=== PATIENT | male | born 1975 | race Caucasian/White ===

== ENCOUNTER 2016-12-25 23:09 | Emergency (ER) | payer OTHER ==
--- NOTE | 2016-12-25 23:59 | ED ORDER SUMMARY ---
..... Patient: VAN TAVERA OrderSheet [facility] VisitID: [id number] [place] [address] 41y, M Registration Date/Time: 12/25/2016 ORDER SHEET Weight: 106.5 kg (stated) Allergies: No Known Drug Allergy GENERAL ORDERS: Knee 4V Left Urgent (23:12/25/2016 Candace Frances) (23:35 EInderbitzen R.N.) (Ack 23:35 Akbar ER Drywall Contractor) Shoulder 2V or more Right Urgent (23:12/25/2016 Candace Frances) (23:35 EInderbitzen R.N.) (Ack 23:35 Akbar ER Drywall Contractor) Ice (23:12/25/2016 Candace Frances) (Ack 23:35 EInderbitzen R.N.) (23:35 EInderbitzen R.N.) Irrigate Wounds (23:12/25/2016 Candace Frances) (23:35 EInderbitzen R.N.) Dress Wounds (23:12/25/2016 Candace Frances) (23:35 EInderbitzen R.N.) MEDICATION ORDERS: Ysnzpwp-Oipntv-Zactr Pertussis IM 0.5 mL (NOW, per protocol) (23:12/25/2016 Candace Frances) (23:34 EInderbitzen R.N.) Augmentin PO 875 mg (NOW) (23:12/25/2016 Candace Frances) (23:34 EInderbitzen R.N.) IV FLUIDS: ORDER SHEET NOTES: [Electronically signed by Siobhan López R.N. (00:12/26/2016)] [Electronically signed by Philip Handy Dr. (05:13 12/28/2016)] [Electronically locked/signed by Siobhan López R.N. (00:12/26/2016)]
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
--- NOTE | 2016-12-25 23:59 | ED ORDER SUMMARY ---
..... Patient: VAN TAVERA OrderSheet [facility] VisitID: [id number] [place] [address] 41y, M Registration Date/Time: 12/25/2016 ORDER SHEET Weight: 106.5 kg (stated) Allergies: No Known Drug Allergy GENERAL ORDERS: Knee 4V Left Urgent (23:12/25/2016 Candace Frances) (23:35 EInderbitzen R.N.) (Ack 23:35 Akbar ER Cruller Maker Machine) Shoulder 2V or more Right Urgent (23:12/25/2016 Candace Frances) (23:35 EInderbitzen R.N.) (Ack 23:35 Akbar ER Cruller Maker Machine) Ice (23:12/25/2016 Candace Frances) (Ack 23:35 EInderbitzen R.N.) (23:35 EInderbitzen R.N.) Irrigate Wounds (23:12/25/2016 Candace Frances) (23:35 EInderbitzen R.N.) Dress Wounds (23:12/25/2016 Candace Frances) (23:35 EInderbitzen R.N.) MEDICATION ORDERS: Bzvqoze-Zgpgyz-Dijuo Pertussis IM 0.5 mL (NOW, per protocol) (23:12/25/2016 Candace Frances) (23:34 EInderbitzen R.N.) Augmentin PO 875 mg (NOW) (23:12/25/2016 Candace Frances) (23:34 EInderbitzen R.N.) IV FLUIDS: ORDER SHEET NOTES: [Electronically signed by Siobhan López R.N. (00:12/26/2016)] [Electronically signed by Philip Handy Dr. (05:13 12/28/2016)] [Electronically locked/signed by Siobhan López R.N. (00:12/26/2016)]
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
--- NOTE | 2016-12-26 00:03 | DIAGNOSTIC IMAGING REPORT ---
PROCEDURE: XR KNEE 4 VIEWS - LEFT INDICATION: TRAUMA/INJURY TECHNIQUE: Four views. COMPARISON: None. FINDINGS: Osseous structures and joint spaces are normal. No effusion. IMPRESSION: 1. Normal left knee.
--- NOTE | 2016-12-26 00:04 | DIAGNOSTIC IMAGING REPORT ---
PROCEDURE: XR SHOULDER 2 OR MORE VW-RIGHT INDICATION: TRAUMA/INJURY TECHNIQUE: Three views. COMPARISON: None. FINDINGS: Osseous structures, joint spaces and soft tissues are normal. IMPRESSION: 1. Normal right shoulder.
--- NOTE | 2016-12-28 05:13 | ED MAR SUMMARY ---
..... Medication Administration Record [facility] [address] [place] [address] Patient: VAN TAVERA Visit ID: [id number] 41y, M Weight: 106.5 kg Height/Length: 67 in BMI: 36.8 ALLERGIES: No Known Drug Allergy Given 23:30 12/25/2016 Siobhan López RMinoNMino Medication Administered: AUGMENTIN [PO] (AMOXICILLIN-POT CLAVULANATE), Dose: 875 mg Tablets PO. Medication Ordered: Augmentin PO 875 mg (NOW). Given 23:32 12/25/2016 Siobhan López, R.NMino Medication Administered: WBHLWTH-TELZLC-HIIWB PERTUSSIS [IM], Dose: 0.5 mL IM. Medication Ordered: Opiehhp-Oikmij-Qgrdn Pertussis IM 0.5 mL (NOW, per protocol).
--- NOTE | 2016-12-28 05:13 | ED DISCHARGE INSTRUCTIONS ---
Patient: VAN TAVERA General Instructions [facility] VisitID: [id number] [place] [address] 41y, M Registration Date/Time: 12/25/2016 12/25/2016 23:22 BP: 100/53. HR: 102. RR: 20. O2 saturation: 96%. Temp: 98.8 F. Blood pressure normal. Oxygen saturation normal. Multiple superficial abrasions to the right thigh and left knee. Superficial dog bite. Multiple contusions to the right shoulder. INSTRUCTIONS Warnings: INFECTION: Watch for signs of infection (increasing heat and redness, pus-like drainage, swelling, or increased pain). Return or see your doctor if these signs occur. TETANUS: You were given a tetanus shot during your visit. Make a note for future reference. GENERAL WARNINGS: Return or contact your physician immediately if your condition worsens or changes unexpectedly, if not improving as expected, or if other problems arise. SPECIFICALLY, return if you develop weakness, numbness, tingling, pain or incontinence. Your Current Medications: CONTINUE TAKING THE FOLLOWING MEDICATIONS: None*. Prescription Medications: Augmentin 875 mg: take 1 tablet orally every 12 hours for 7 days. No refill. Substitution is permissible. (Disp 14 tabs) OTC Medications: Acetaminophen (available over the counter): take according to label instructions. Motrin (available over the counter): take according to label instructions. Follow-up: Return to the emergency department as needed. Follow up with your doctor in three days. Reason for referral: recheck today's concerns. Summary of care provided to patient via paper. Screening today revealed the patient's blood pressure to be in the normal range. The patient should follow up with a primary care provider for blood pressure management. Understanding of the discharge instructions verbalized by patient. ADDITIONAL INFORMATION Abrasions Abrasions are skin scrapes. Their treatment depends on how large and deep the abrasion is. Home Care: If you were given a bandage, change it once a day. If your bandage sticks to the wound, soak it in warm water until it loosens. Wash the area with soap and water to remove all the cream/ointment. You may do this in a sink, under a tub faucet or shower. Rinse off the soap and pat dry with a clean towel. Reapply cream/ointment according to your doctor's instructions. This will prevent infection and help prevent the bandage from sticking. Cover the wound with a fresh non-stick bandage (Telfa). Repeat steps 1 to 4 daily, or as directed by your doctor. If the bandage becomes wet or dirty, change it as soon as possible. You may use acetaminophen (Tylenol) or ibuprofen (Motrin, Advil) to control pain, unless another pain medicine was prescribed. [ NOTE : If you have chronic liver or kidney disease or ever had a stomach ulcer or GI bleeding, talk with your doctor before using these medicines.] Do not use ibuprofen in children under six months of age. Follow Up with your physician or this facility as directed by our staff. Most skin wounds heal within ten days. However, an infection may occur despite proper treatment. Therefore, look for the early signs of infection listed below. Get Prompt Medical Attention if any of the following occur: Increasing pain in the wound Increasing redness or swelling Pus coming from the wound Fever of 100.4F (38C) or higher, or as directed by your healthcare provider Shoulder Contusion You have a contusion of your shoulder. This causes local pain, swelling, and sometimes bruising. There are no broken bones. This injury takes a few days, or up to six weeks to heal, depending on the severity. Moderate to severe shoulder contusions are treated with a sling or shoulder immobilizer. Minor contusions can be treated without any special support. Home Care: If a sling was provided, leave it in place for the time advised by your doctor. If you are unsure how long to wear it, ask for advice. If the sling becomes loose, adjust it so that your forearm is level with the ground and the shoulder feels well supported. Apply an ice pack (ice cubes in a plastic bag, wrapped in a towel) over the injured area for 20 minutes every 1 to 2 hours the first day for pain relief. Continue this 3 to 4 times a day until the pain and swelling go away. You may use acetaminophen (Tylenol) or ibuprofen (Motrin, Advil) to control pain, unless another pain medicine was prescribed. (NOTE: If you have chronic liver or kidney disease or ever had a stomach ulcer or GI bleeding, talk with your doctor before using these medicines.) Shoulder joints become stiff if left in a sling for too long. Dyglj-wm-fyslzp exercises should usually be started within the first ten days after injury. Consult your doctor on what type of exercises to do and how soon to start. Unless you were told otherwise, you may remove the sling to shower or bathe. Follow Up with your doctor, or as advised by our staff, if you are not starting to improve within the next 5 days. Get Prompt Medical Attention if any of the following occur: Pain or swelling increases Large amount of bruising of the shoulder or upper arm Hand or fingers become cold, blue, numb or tingly Dog Bite If a dog has bitten you and the wound is deep enough to break the skin, an infection may occur. Therefore, you should watch for the warning signs listed below. The doctor may not close the wound completely. This is to allow fluid to drain in the event of an infection. Home Care Watch the wound for signs of infection listed below. In certain types of bites, antibiotics may be prescribed. Begin taking these as soon as possible, as directed until they are all gone. Rabies Prevention If you live in an area where rabies occurs in wild animals, the rabies virus can be passed to cats and dogs. An infected animal can pass the rabies virus to you during a bite. If ahealthy-looking pet dog has bitten you, it should be kept in a secure area for the next 10 days to watch for signs of illness. If the pet van owner operator wont cooperate with you, contact the [facility] animal control department (or local law enforcement). If the animal becomes ill or dies [id number] days, contact your animal control department at once. The animal must be tested for rabies. If the animal stays healthy for the next 10 days, then there is no danger of rabies in the dog or you. Pets fully vaccinated against rabies (2 shots) are at very low risk for the infection. However, because human rabies is almost always fatal, any biting dog should be kept in confinement for 10 days as an extra precaution. If a stray dog bit you, contact the animal control department. They can provide information on capture, quarantine, and animal rabies testing. If you are unable to locate the animal that bit you in the next 2days, and if rabies exists in your region, you must be evaluated for the rabies vaccine series. Contact your doctor or return here promptly. All animal bites should be reported to the [facility] animal control department. If you were not given a form to fill out, you can report it yourself by calling. Follow Up with your doctor as advised. Most skin wounds heal within 10 days. However, an infection may occur even with proper treatment. Check your woundevery 6 hoursfor 2 days, then at least once a day for the next two days for the signs of infection listed below. Get Prompt Medical Attention if any of the following occur: Signs of infection: Spreading redness Increased pain or swelling Fever of 100.4F (38C) or higher, or as directed by your healthcare provider Colored fluid or pus draining from the wound Headache, confusion, strange behavior, or a seizure (signs of a rabies infection) Amoxicillin Trihydrate, Clavulanate Potassium Oral tablet What is this medicine? AMOXICILLIN; CLAVULANIC ACID (a mox i GERMAN in; RONALD kohli ic id) is a penicillin antibiotic. It is used to treat certain kinds of bacterial infections. It will not work for colds, flu, or other viral infections. How should I use this medicine? Take this medicine by mouth with a full glass of water. Follow the directions on the prescription label. Take at the start of a meal. Do not crush or chew. If the tablet has a score line, you may cut it in half at the score line for easier swallowing. Take your medicine at regular intervals. Do not take your medicine more often than directed. Take all of your medicine as directed even if you think you are better. Do not skip doses or stop your medicine early. Talk to your assurance specialist regarding the use of this medicine in children. Special care may be needed. What side effects may I notice from receiving this medicine? Side effects that you should report to your doctor or health urgent care physician assistant as soon as possible: allergic reactions like skin rash, itching or hives, swelling of the face, lips, or tongue breathing problems dark urine fever or chills, sore throat redness, blistering, peeling or loosening of the skin, including inside the mouth seizures trouble passing urine or change in the amount of urine unusual bleeding, bruising unusually weak or tired white patches or sores in the mouth or throat Side effects that usually do not require medical attention (report to your doctor or health urgent care physician assistant if they continue or are bothersome): diarrhea dizziness headache nausea, vomiting stomach upset vaginal or anal irritation What may interact with this medicine? allopurinol anticoagulants control pills methotrexate probenecid What if I miss a dose? If you miss a dose, take it as soon as you can. If it is almost time for your next dose, take only that dose. Do not take double or extra doses. Where should I keep my medicine? Keep out of the reach of children. Store at room temperature below 25 degrees C (77 degrees F). Keep container tightly closed. Throw away any unused medicine after the expiration date. What should I tell my health care provider before I take this medicine? They need to know if you have any of these conditions: bowel disease, like colitis kidney disease liver disease mononucleosis an unusual or allergic reaction to amoxicillin, penicillin, cephalosporin, other antibiotics, clavulanic acid, other medicines, foods, dyes, or preservatives or trying to get breast-feeding What should I watch for while using this medicine? Tell your doctor or health urgent care physician assistant if your symptoms do not improve. Do not treat diarrhea with over the counter products. Contact your doctor if you have diarrhea that lasts more than 2 days or if it is severe and watery. If you have diabetes, you may get a false-positive result for sugar in your urine. Check with your doctor or health urgent care physician assistant. control pills may not work properly while you are taking this medicine. Talk to your doctor about using an extra method of control. You have been given the following additional information: Abrasion Shoulder Contusion Dog Bite Amoxicillin Trihydrate, Clavulanate Potassium Oral tablet (Electronically signed by Philip Handy Dr. 12/28/2016 5:13)
--- NOTE | 2016-12-28 05:13 | ED MAR SUMMARY ---
..... Medication Administration Record [facility] [address] [place] [address] Patient: VAN TAVERA Visit ID: [id number] 41y, M Weight: 106.5 kg Height/Length: 67 in BMI: 36.8 ALLERGIES: No Known Drug Allergy Given 23:30 12/25/2016 Siobhan López RMinoNMino Medication Administered: AUGMENTIN [PO] (AMOXICILLIN-POT CLAVULANATE), Dose: 875 mg Tablets PO. Medication Ordered: Augmentin PO 875 mg (NOW). Given 23:32 12/25/2016 Siobhan López, R.NMino Medication Administered: SDNLGIF-EQONTV-MRPXB PERTUSSIS [IM], Dose: 0.5 mL IM. Medication Ordered: Hwhjovk-Xffoot-Zbanf Pertussis IM 0.5 mL (NOW, per protocol).
--- NOTE | 2016-12-28 05:13 | ED DISCHARGE INSTRUCTIONS ---
Patient: VAN TAVERA General Instructions [facility] VisitID: [id number] [place] [address] 41y, M Registration Date/Time: 12/25/2016 12/25/2016 23:22 BP: 100/53. HR: 102. RR: 20. O2 saturation: 96%. Temp: 98.8 F. Blood pressure normal. Oxygen saturation normal. Multiple superficial abrasions to the right thigh and left knee. Superficial dog bite. Multiple contusions to the right shoulder. INSTRUCTIONS Warnings: INFECTION: Watch for signs of infection (increasing heat and redness, pus-like drainage, swelling, or increased pain). Return or see your doctor if these signs occur. TETANUS: You were given a tetanus shot during your visit. Make a note for future reference. GENERAL WARNINGS: Return or contact your physician immediately if your condition worsens or changes unexpectedly, if not improving as expected, or if other problems arise. SPECIFICALLY, return if you develop weakness, numbness, tingling, pain or incontinence. Your Current Medications: CONTINUE TAKING THE FOLLOWING MEDICATIONS: None*. Prescription Medications: Augmentin 875 mg: take 1 tablet orally every 12 hours for 7 days. No refill. Substitution is permissible. (Disp 14 tabs) OTC Medications: Acetaminophen (available over the counter): take according to label instructions. Motrin (available over the counter): take according to label instructions. Follow-up: Return to the emergency department as needed. Follow up with your doctor in three days. Reason for referral: recheck today's concerns. Summary of care provided to patient via paper. Screening today revealed the patient's blood pressure to be in the normal range. The patient should follow up with a primary care provider for blood pressure management. Understanding of the discharge instructions verbalized by patient. ADDITIONAL INFORMATION Abrasions Abrasions are skin scrapes. Their treatment depends on how large and deep the abrasion is. Home Care: If you were given a bandage, change it once a day. If your bandage sticks to the wound, soak it in warm water until it loosens. Wash the area with soap and water to remove all the cream/ointment. You may do this in a sink, under a tub faucet or shower. Rinse off the soap and pat dry with a clean towel. Reapply cream/ointment according to your doctor's instructions. This will prevent infection and help prevent the bandage from sticking. Cover the wound with a fresh non-stick bandage (Telfa). Repeat steps 1 to 4 daily, or as directed by your doctor. If the bandage becomes wet or dirty, change it as soon as possible. You may use acetaminophen (Tylenol) or ibuprofen (Motrin, Advil) to control pain, unless another pain medicine was prescribed. [ NOTE : If you have chronic liver or kidney disease or ever had a stomach ulcer or GI bleeding, talk with your doctor before using these medicines.] Do not use ibuprofen in children under six months of age. Follow Up with your physician or this facility as directed by our staff. Most skin wounds heal within ten days. However, an infection may occur despite proper treatment. Therefore, look for the early signs of infection listed below. Get Prompt Medical Attention if any of the following occur: Increasing pain in the wound Increasing redness or swelling Pus coming from the wound Fever of 100.4F (38C) or higher, or as directed by your healthcare provider Shoulder Contusion You have a contusion of your shoulder. This causes local pain, swelling, and sometimes bruising. There are no broken bones. This injury takes a few days, or up to six weeks to heal, depending on the severity. Moderate to severe shoulder contusions are treated with a sling or shoulder immobilizer. Minor contusions can be treated without any special support. Home Care: If a sling was provided, leave it in place for the time advised by your doctor. If you are unsure how long to wear it, ask for advice. If the sling becomes loose, adjust it so that your forearm is level with the ground and the shoulder feels well supported. Apply an ice pack (ice cubes in a plastic bag, wrapped in a towel) over the injured area for 20 minutes every 1 to 2 hours the first day for pain relief. Continue this 3 to 4 times a day until the pain and swelling go away. You may use acetaminophen (Tylenol) or ibuprofen (Motrin, Advil) to control pain, unless another pain medicine was prescribed. (NOTE: If you have chronic liver or kidney disease or ever had a stomach ulcer or GI bleeding, talk with your doctor before using these medicines.) Shoulder joints become stiff if left in a sling for too long. Ckwld-oa-njyznf exercises should usually be started within the first ten days after injury. Consult your doctor on what type of exercises to do and how soon to start. Unless you were told otherwise, you may remove the sling to shower or bathe. Follow Up with your doctor, or as advised by our staff, if you are not starting to improve within the next 5 days. Get Prompt Medical Attention if any of the following occur: Pain or swelling increases Large amount of bruising of the shoulder or upper arm Hand or fingers become cold, blue, numb or tingly Dog Bite If a dog has bitten you and the wound is deep enough to break the skin, an infection may occur. Therefore, you should watch for the warning signs listed below. The doctor may not close the wound completely. This is to allow fluid to drain in the event of an infection. Home Care Watch the wound for signs of infection listed below. In certain types of bites, antibiotics may be prescribed. Begin taking these as soon as possible, as directed until they are all gone. Rabies Prevention If you live in an area where rabies occurs in wild animals, the rabies virus can be passed to cats and dogs. An infected animal can pass the rabies virus to you during a bite. If ahealthy-looking pet dog has bitten you, it should be kept in a secure area for the next 10 days to watch for signs of illness. If the pet dentist/owner wont cooperate with you, contact the [facility] animal control department (or local law enforcement). If the animal becomes ill or dies [id number] days, contact your animal control department at once. The animal must be tested for rabies. If the animal stays healthy for the next 10 days, then there is no danger of rabies in the dog or you. Pets fully vaccinated against rabies (2 shots) are at very low risk for the infection. However, because human rabies is almost always fatal, any biting dog should be kept in confinement for 10 days as an extra precaution. If a stray dog bit you, contact the animal control department. They can provide information on capture, quarantine, and animal rabies testing. If you are unable to locate the animal that bit you in the next 2days, and if rabies exists in your region, you must be evaluated for the rabies vaccine series. Contact your doctor or return here promptly. All animal bites should be reported to the [facility] animal control department. If you were not given a form to fill out, you can report it yourself by calling. Follow Up with your doctor as advised. Most skin wounds heal within 10 days. However, an infection may occur even with proper treatment. Check your woundevery 6 hoursfor 2 days, then at least once a day for the next two days for the signs of infection listed below. Get Prompt Medical Attention if any of the following occur: Signs of infection: Spreading redness Increased pain or swelling Fever of 100.4F (38C) or higher, or as directed by your healthcare provider Colored fluid or pus draining from the wound Headache, confusion, strange behavior, or a seizure (signs of a rabies infection) Amoxicillin Trihydrate, Clavulanate Potassium Oral tablet What is this medicine? AMOXICILLIN; CLAVULANIC ACID (a mox i GERMAN in; RONALD kohli ic id) is a penicillin antibiotic. It is used to treat certain kinds of bacterial infections. It will not work for colds, flu, or other viral infections. How should I use this medicine? Take this medicine by mouth with a full glass of water. Follow the directions on the prescription label. Take at the start of a meal. Do not crush or chew. If the tablet has a score line, you may cut it in half at the score line for easier swallowing. Take your medicine at regular intervals. Do not take your medicine more often than directed. Take all of your medicine as directed even if you think you are better. Do not skip doses or stop your medicine early. Talk to your software engineer intern regarding the use of this medicine in children. Special care may be needed. What side effects may I notice from receiving this medicine? Side effects that you should report to your doctor or health ocular care aide as soon as possible: allergic reactions like skin rash, itching or hives, swelling of the face, lips, or tongue breathing problems dark urine fever or chills, sore throat redness, blistering, peeling or loosening of the skin, including inside the mouth seizures trouble passing urine or change in the amount of urine unusual bleeding, bruising unusually weak or tired white patches or sores in the mouth or throat Side effects that usually do not require medical attention (report to your doctor or health ocular care aide if they continue or are bothersome): diarrhea dizziness headache nausea, vomiting stomach upset vaginal or anal irritation What may interact with this medicine? allopurinol anticoagulants control pills methotrexate probenecid What if I miss a dose? If you miss a dose, take it as soon as you can. If it is almost time for your next dose, take only that dose. Do not take double or extra doses. Where should I keep my medicine? Keep out of the reach of children. Store at room temperature below 25 degrees C (77 degrees F). Keep container tightly closed. Throw away any unused medicine after the expiration date. What should I tell my health care provider before I take this medicine? They need to know if you have any of these conditions: bowel disease, like colitis kidney disease liver disease mononucleosis an unusual or allergic reaction to amoxicillin, penicillin, cephalosporin, other antibiotics, clavulanic acid, other medicines, foods, dyes, or preservatives or trying to get breast-feeding What should I watch for while using this medicine? Tell your doctor or health ocular care aide if your symptoms do not improve. Do not treat diarrhea with over the counter products. Contact your doctor if you have diarrhea that lasts more than 2 days or if it is severe and watery. If you have diabetes, you may get a false-positive result for sugar in your urine. Check with your doctor or health ocular care aide. control pills may not work properly while you are taking this medicine. Talk to your doctor about using an extra method of control. You have been given the following additional information: Abrasion Shoulder Contusion Dog Bite Amoxicillin Trihydrate, Clavulanate Potassium Oral tablet (Electronically signed by Philip Handy Dr. 12/28/2016 5:13)
--- NOTE | 2016-12-28 05:13 | ED MED RECONCILIATION SUMMARY ---
Patient: VAN TAVERA Medication Reconciliation Report [facility] VisitID: [id number] [place] [address] 41y, M Registration Date/Time: 12/25/2016 Weight: 106.5 kg Height/Length: 67 in. BMI: 36.8 ALLERGIES: No Known Drug Allergy The patient's Home Medications are listed below: NONE. The source(s) of the original Home Medication information: patient The following Medications were given to the patient in the Emergency Department: LZZVLZQ-SDPPSY-OXZFZ PERTUSSIS [IM] IM 0.5 mL, administered: 12/25/2016 11:32:00 PM Augmentin [PO] PO 875 mg, administered: 12/25/2016 11:30:00 PM The following Medications were prescribed to the patient: Acetaminophen (available over the counter): take according to label instructions. -- Philip Handy Dr. Motrin (available over the counter): take according to label instructions. -- Philip Handy Dr. Augmentin 875 mg: take 1 tablet orally every 12 hours for 7 days. No refill. Substitution is permissible.(Disp 14 tabs) -- Philip Handy Dr.
--- NOTE | 2016-12-28 05:13 | ED MED RECONCILIATION SUMMARY ---
Patient: VAN TAVERA Medication Reconciliation Report [facility] VisitID: [id number] [place] [address] 41y, M Registration Date/Time: 12/25/2016 Weight: 106.5 kg Height/Length: 67 in. BMI: 36.8 ALLERGIES: No Known Drug Allergy The patient's Home Medications are listed below: NONE. The source(s) of the original Home Medication information: patient The following Medications were given to the patient in the Emergency Department: ZDTAPKR-XGTKRH-XNSEZ PERTUSSIS [IM] IM 0.5 mL, administered: 12/25/2016 11:32:00 PM Augmentin [PO] PO 875 mg, administered: 12/25/2016 11:30:00 PM The following Medications were prescribed to the patient: Acetaminophen (available over the counter): take according to label instructions. -- Philip Handy Dr. Motrin (available over the counter): take according to label instructions. -- Philip Handy Dr. Augmentin 875 mg: take 1 tablet orally every 12 hours for 7 days. No refill. Substitution is permissible.(Disp 14 tabs) -- Philip Handy Dr.
== END 2016-12-26 00:27 | disposition home or self-care (01) ==
LOC: ED SRH 23:09
DX: S40.011A Contusion of right shoulder, initial encounter (principal); S70.311A Abrasion, right thigh, initial encounter; S80.212A Abrasion, left knee, initial encounter; W54.0XXA Bitten by dog, initial encounter; Y93.89 Activity, other specified; Y92.9 Unspecified place or not applicable; Y99.8 Other external cause status; Z23 Encounter for immunization

== ENCOUNTER 2017-03-04 02:30 | Emergency (ER) | payer OTHER ==
--- NOTE | 2017-03-04 03:59 | ED ORDER SUMMARY ---
..... Patient: VAN TAVERA OrderSheet [facility] VisitID: [id number] [address] [place] [address] 41y, M Registration Date/Time: 03/04/2017 ORDER SHEET Weight: 99.7 kg (stated) Allergies: No Known Drug Allergy GENERAL ORDERS: - (soak feet in warm soapy water) (02:55 03/04/2017 Candace Frances) (Ack 2:56 RCollier R.N.) (3:05 RCollier R.N.) MEDICATION ORDERS: Apezxkx-Zuulol-Mcsdz Pertussis IM 0.5 mL (NOW, per protocol) (02:55 03/04/2017 Candace Frances) (Ack 2:56 RCollier R.N.) (3:04 RCollier R.N.) Motrin PO 600 mg (NOW) (02:55 03/04/2017 Candace Frances) (Ack 2:56 RCollier R.N.) (3:05 RCollier R.N.) IV FLUIDS: ORDER SHEET NOTES: [Electronically signed by Blanca Solano R.N. (04:10 03/04/2017)] [Electronically signed by Philip Handy Dr. (06:12 03/07/2017)] [Electronically locked/signed by Blanca Solano R.N. (04:10 03/04/2017)]
--- NOTE | 2017-03-04 03:59 | ED NURSING NOTES ---
Clinical Report - Nurses [address] [place] [address] 03/04/2017 2:33 Patient: VAN TAVERA TRIAGE Triage time 02:41. Acuity: LEVEL 4. Chief Complaint: RIGHT LOWER EXTREMITY PAIN. LEFT LOWER EXTREMITY PAIN. Alert. No acute distress. --02:45 Blanca Solano R.N. 02:41 03/04/17. BP: 135/79 taken on the left arm, via an automated monitor, while lying. HR: 84. RR: 16 (regular and unlabored). O2 saturation: 94% on room air. Temp: 97.8 F (oral). Jerome-Dai pain scale: 4/10. --02:45 Blanca Solano R.N. Weight: 99.7 kg stated. Height/Length: 67 inches Per Patient. BMI: 34.5. --02:42 Blanca Solano R.N. Medications Ibuprofen Oral. --02:42 Blanca Solano R.N. Benadryl Oral 50 mg, 2x a day. --02:42 Blanca Solano R.N. Allergies No Known Drug Allergy. --02:42 Blanca Solano R.N. History Historian: patient. Primary physician (None). This occurred today. He has had trouble walking (due to pain). 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 PAST MEDICAL HX: Tetanus status: unknown. Immunizations: status is unknown. SOCIAL HX: Never smoker. Occasional alcohol use. History of drug use: marijuana. --02:45 Blanca Solano R.N. ( pt is homeless and has been walking great distances lately). --02:47 Blanca Solano R.N. PROBLEMS: Psychosis. Anxiety Reaction. Mental Illness. Polyps. --02:43 Blanca Solano R.N. ADDITIONAL SURGERIES: Dental Surgery. Oral surgery . --02:43 Blanca Solano R.N. Interventions ID band on patient. To treatment room. --02:45 Blanca Solano R.N. PHYSICAL ASSESSMENT blisters noted bilaterally on plantar surface and between toes. Ambulatory to room. Patient gowned. GENERAL / NEURO / PSYCH: Oriented X 4. Appears anxious. SKIN: Skin is warm. --02:47 Blanca Solano R.N. NURSING PROGRESS NOTES Two patient identifiers checked. Call light placed in reach. Side rails up x 1. Bed placed in lowest position. Brakes of bed on. --02:47 Blanca Solano R.N. Patient ready for evaluation- chart flagged. --02:47 Blanca Solano R.N. 03:00 03/04/2017 XPPOFUQ-CGKPVQ-RVTOE PERTUSSIS IM 0.5 mL given. (Lot#: [id number], expiration date: 01/16/2019, Pull Through Hooker: sanofi pasteur). Given in the left deltoid. Allergies verified and confirmed 5 rights. Vaccine information statement provided to the patient. --03:04 Blanca Solano R.N. 03:01 03/04/2017 Motrin PO Tablets 600 mg given. Allergies verified and confirmed 5 rights. --03:05 Blanca Solano R.N. 03:05. ( pts feet placed in tub with warm water and Hibiclens, wash cloths and dry towels given to pt.). --03:07 Blanca Solano R.N. DISPOSITION / DISCHARGE Condition at departure: improved and stable. No learning barriers present. Discharge instructions provided and reviewed with the patient. Patient verbalized understanding. Written instructions provided in Persian. The patient was discharged ([facility] in [place] He left the Emergency Department ambulatory and via bus and with fare provided. ( pt will sleep in ED until the buses start running in the morning.). --04:10 Blanca Solano R.N. 04:05 03/04/17. BP: 127/73. HR: 73. RR: 17. O2 saturation: 90% on room air. Temp: deferred. Pain level now: 0/10. --04:10 Blanca Solano R.N. Locked/Released at 03/04/2017 4:10 by Blanca Solano R.N.
--- NOTE | 2017-03-04 03:59 | ED ORDER SUMMARY ---
..... Patient: VAN TAVERA OrderSheet [facility] VisitID: [id number] [address] [place] [address] 41y, M Registration Date/Time: 03/04/2017 ORDER SHEET Weight: 99.7 kg (stated) Allergies: No Known Drug Allergy GENERAL ORDERS: - (soak feet in warm soapy water) (02:55 03/04/2017 Candace Frances) (Ack 2:56 RCollier R.N.) (3:05 RCollier R.N.) MEDICATION ORDERS: Uouzxmn-Dhlwlq-Turzj Pertussis IM 0.5 mL (NOW, per protocol) (02:55 03/04/2017 Candace Frances) (Ack 2:56 RCollier R.N.) (3:04 RCollier R.N.) Motrin PO 600 mg (NOW) (02:55 03/04/2017 Candace Frances) (Ack 2:56 RCollier R.N.) (3:05 RCollier R.N.) IV FLUIDS: ORDER SHEET NOTES: [Electronically signed by Blanca Solano R.N. (04:10 03/04/2017)] [Electronically signed by Philip Handy Dr. (06:12 03/07/2017)] [Electronically locked/signed by Blanca Solano R.N. (04:10 03/04/2017)]
--- NOTE | 2017-03-04 03:59 | ED NURSING NOTES ---
Clinical Report - Nurses [address] [place] [address] 03/04/2017 2:33 Patient: VAN TAVERA TRIAGE Triage time 02:41. Acuity: LEVEL 4. Chief Complaint: RIGHT LOWER EXTREMITY PAIN. LEFT LOWER EXTREMITY PAIN. Alert. No acute distress. --02:45 Blanca Solano R.N. 02:41 03/04/17. BP: 135/79 taken on the left arm, via an automated monitor, while lying. HR: 84. RR: 16 (regular and unlabored). O2 saturation: 94% on room air. Temp: 97.8 F (oral). Jerome-Dai pain scale: 4/10. --02:45 Blanca Solano R.N. Weight: 99.7 kg stated. Height/Length: 67 inches Per Patient. BMI: 34.5. --02:42 Blanca Solano R.N. Medications Ibuprofen Oral. --02:42 Blanca Solano R.N. Benadryl Oral 50 mg, 2x a day. --02:42 Blanca Solano R.N. Allergies No Known Drug Allergy. --02:42 Blanca Solano R.N. History Historian: patient. Primary physician (None). This occurred today. He has had trouble walking (due to pain). 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 PAST MEDICAL HX: Tetanus status: unknown. Immunizations: status is unknown. SOCIAL HX: Never smoker. Occasional alcohol use. History of drug use: marijuana. --02:45 Blanca Solano R.N. ( pt is homeless and has been walking great distances lately). --02:47 Blanca Solano R.N. PROBLEMS: Psychosis. Anxiety Reaction. Mental Illness. Polyps. --02:43 Blanca Solano R.N. ADDITIONAL SURGERIES: Dental Surgery. Oral surgery . --02:43 Blanca Solano R.N. Interventions ID band on patient. To treatment room. --02:45 Blanca Solano R.N. PHYSICAL ASSESSMENT blisters noted bilaterally on plantar surface and between toes. Ambulatory to room. Patient gowned. GENERAL / NEURO / PSYCH: Oriented X 4. Appears anxious. SKIN: Skin is warm. --02:47 Blanca Solano R.N. NURSING PROGRESS NOTES Two patient identifiers checked. Call light placed in reach. Side rails up x 1. Bed placed in lowest position. Brakes of bed on. --02:47 Blanca Solano R.N. Patient ready for evaluation- chart flagged. --02:47 Blanca Solano R.N. 03:00 03/04/2017 UERTZIF-HANALW-FTEWM PERTUSSIS IM 0.5 mL given. (Lot#: [id number], expiration date: 01/16/2019, Seed Potato Arranger: sanofi pasteur). Given in the left deltoid. Allergies verified and confirmed 5 rights. Vaccine information statement provided to the patient. --03:04 Blanca Solano R.N. 03:01 03/04/2017 Motrin PO Tablets 600 mg given. Allergies verified and confirmed 5 rights. --03:05 Blanca Solano R.N. 03:05. ( pts feet placed in tub with warm water and Hibiclens, wash cloths and dry towels given to pt.). --03:07 Blanca Solano R.N. DISPOSITION / DISCHARGE Condition at departure: improved and stable. No learning barriers present. Discharge instructions provided and reviewed with the patient. Patient verbalized understanding. Written instructions provided in Kinyarwanda. The patient was discharged (homeless custodial in [place]). He left the Emergency Department ambulatory and via bus and with fare provided. ( pt will sleep in ED until the buses start running in the morning.). --04:10 Blanca Solano R.N. 04:05 03/04/17. BP: 127/73. HR: 73. RR: 17. O2 saturation: 90% on room air. Temp: deferred. Pain level now: 0/10. --04:10 Blanca Solano R.N. Locked/Released at 03/04/2017 4:10 by Blanca Solano R.N.
--- NOTE | 2017-03-04 03:59 | ED CLINICAL REPORT ---
Clinical Report - Physicians/Mid Levels [facility] [address] [place] [place] [address] 03/04/2017 2:33 Patient: VAN TAVERA Time Seen: 0241. Arrived- By private vehicle. Historian- patient. HISTORY OF PRESENT ILLNESS Chief Complaint: (blisters to the bottom of the feet). This started today and is still present. It was gradual in onset and has been constant but is not gone now. It is described as painful. It has been located on the right foot and left foot. A cause has been identified (walking long distances). (states he is homeless. would like a shower. understands that there is not much we can do for the blisters. states he can not get into a skilled nursing at this time because it is too late. reports not being able to stay at his storage place.). Similar symptoms previously: None. Recent medical care: Not recently seen/assessed. REVIEW OF SYSTEMS No fever, cough or chest pain. All systems otherwise negative, except as recorded above. PAST HISTORY See nurses notes. Tetanus immunization status is unknown. SOCIAL HISTORY Never smoker. Occasional alcohol use. History of occasional drug use: marijuana. No recent travel. Is a local resident. ADDITIONAL NOTES The nursing notes have been reviewed. PHYSICAL EXAM Vital Signs: 03/04/2017 02:41 BP: 135/79. HR: 84. RR: 16. O2 saturation: 94%. Temp: 97.8 F. Jerome-Dai pain scale: 4/10. Blood pressure normal. Oxygen saturation normal. Appearance: Alert. Oriented X3. No acute distress. Eyes: Pupils equal, round and reactive to light. ENT: Ears normal. Nose normal. Pharynx normal. CVS: Normal heart rate and rhythm. Respiratory: No respiratory distress. Breath sounds normal. Chest nontender. Abdomen: Nontender. No organomegaly. Skin: Skin warm and dry. Normal skin color. No rash. Normal skin turgor. (except the plantar aspect of the foot with bisters primarily on the balls of the feet with some extension to the toes. no FB. no signs of infection. no abdirashid abnormalities.). Extremities: Normal external inspection. No upper extremity edema or lower extremity edema. Extremities nontender. No calf tenderness. PROGRESS AND PROCEDURES Course of Care: he patient is a pleasant 41-year-old male presenting for Evaluation of bilateral feet pain. On examination patient has extensive blisters noted to the pads of the feet. They're primarily located at the balls of the feet. No signs of infection or foreign body. had a discussion with options available for the discomfort. Pain medication as been offered. Had a discussion with the patient in regards to the wounds and potential infection risk. Patient is agreeable to treatment plan. Patient was monitored in the emergency department Until morning. Patient was reevaluated at the time of discharge and found to be resting in bed and in no acute distress. Patient continues to be nontoxic. No signs of infection. I discussion with the patient in regards his workup here in the emergency department including diagnosis, home care, follow-up, and return precautions. All questions have been answered. The patient expressed understanding of these instructions and was agreeable to them. Disposition: Discharged. Condition: good. CLINICAL IMPRESSION 03/04/2017 02:41 BP: 135/79. HR: 84. RR: 16. O2 saturation: 94%. Temp: 97.8 F. Jerome-Dai pain scale: 4/10. Blood pressure normal. Oxygen saturation normal. Multiple deep abrasions to the right foot and left foot. need for tetanus booster. INSTRUCTIONS Warnings: GENERAL WARNINGS: Return or contact your physician immediately if your condition worsens or changes unexpectedly, if not improving as expected, or if other problems arise. Specifically return if pain, vomiting, bleeding, breathing difficulty or fever. Your Current Medications: CONTINUE TAKING THE FOLLOWING MEDICATIONS: Benadryl Oral : 50 mg 2x a day. Ibuprofen Oral. OTC Medications: Acetaminophen (available over the counter): take according to label instructions. Motrin (available over the counter): take according to label instructions. Follow-up: Return to the emergency department as needed. Follow up with your doctor in three days. Reason for referral: recheck today's concerns. Summary of care provided to patient via paper. Screening today revealed the patient's blood pressure to be in the normal range. The patient should follow up with a primary care provider for blood pressure management. Understanding of the discharge instructions verbalized by patient. (Electronically signed by Philip Handy Dr. 03/07/2017 6:12)
--- NOTE | 2017-03-07 06:12 | ED DISCHARGE INSTRUCTIONS ---
Patient: VAN TAVERA General Instructions [facility] VisitID: [id number] [address] [place] [address] 41y, M Registration Date/Time: 03/04/2017 03/04/2017 02:41 BP: 135/79. HR: 84. RR: 16. O2 saturation: 94%. Temp: 97.8 F. Jerome-Dai pain scale: 4/10. Blood pressure normal. Oxygen saturation normal. Multiple deep abrasions to the right foot and left foot. need for tetanus booster. INSTRUCTIONS Warnings: GENERAL WARNINGS: Return or contact your physician immediately if your condition worsens or changes unexpectedly, if not improving as expected, or if other problems arise. Specifically return if pain, vomiting, bleeding, breathing difficulty or fever. Your Current Medications: CONTINUE TAKING THE FOLLOWING MEDICATIONS: Benadryl Oral : 50 mg 2x a day. Ibuprofen Oral. OTC Medications: Acetaminophen (available over the counter): take according to label instructions. Motrin (available over the counter): take according to label instructions. Follow-up: Return to the emergency department as needed. Follow up with your doctor in three days. Reason for referral: recheck today's concerns. Summary of care provided to patient via paper. Screening today revealed the patient's blood pressure to be in the normal range. The patient should follow up with a primary care provider for blood pressure management. Understanding of the discharge instructions verbalized by patient. ADDITIONAL INFORMATION Abrasions Abrasions are skin scrapes. Their treatment depends on how large and deep the abrasion is. Home Care: If you were given a bandage, change it once a day. If your bandage sticks to the wound, soak it in warm water until it loosens. Wash the area with soap and water to remove all the cream/ointment. You may do this in a sink, under a tub faucet or shower. Rinse off the soap and pat dry with a clean towel. Reapply cream/ointment according to your doctor's instructions. This will prevent infection and help prevent the bandage from sticking. Cover the wound with a fresh non-stick bandage (Telfa). Repeat steps 1 to 4 daily, or as directed by your doctor. If the bandage becomes wet or dirty, change it as soon as possible. You may use acetaminophen (Tylenol) or ibuprofen (Motrin, Advil) to control pain, unless another pain medicine was prescribed. [ NOTE : If you have chronic liver or kidney disease or ever had a stomach ulcer or GI bleeding, talk with your doctor before using these medicines.] Do not use ibuprofen in children under six months of age. Follow Up with your physician or this facility as directed by our staff. Most skin wounds heal within ten days. However, an infection may occur despite proper treatment. Therefore, look for the early signs of infection listed below. Get Prompt Medical Attention if any of the following occur: Increasing pain in the wound Increasing redness or swelling Pus coming from the wound Fever of 100.4F (38C) or higher, or as directed by your healthcare provider You have been given the following additional information: Abrasion (Electronically signed by Philip Handy Dr. 03/07/2017 6:12)
--- NOTE | 2017-03-07 06:12 | ED MED RECONCILIATION SUMMARY ---
Patient: VAN TAVERA Medication Reconciliation Report [facility] VisitID: [id number] [address] [place] [address] 41y, M Registration Date/Time: 03/04/2017 Weight: 99.7 kg Height/Length: 67 in. BMI: 34.5 ALLERGIES: No Known Drug Allergy The patient's Home Medications are listed below: CONTINUE TAKING THE FOLLOWING MEDICATIONS: Benadryl Oral 50 mg, 2x a day Ibuprofen Oral The source(s) of the original Home Medication information: Not obtained. The following Medications were given to the patient in the Emergency Department: [id number] PERTUSSIS [IM] IM 0.5 mL, administered: 03/04/2017 3:00:00 AM Motrin [PO] PO 600 mg, administered: 03/04/2017 3:01:00 AM The following Medications were prescribed to the patient: Acetaminophen (available over the counter): take according to label instructions. -- Philip Handy Dr. Motrin (available over the counter): take according to label instructions. -- Philip Handy Dr.
--- NOTE | 2017-03-07 06:12 | ED MAR SUMMARY ---
..... Medication Administration Record [facility] [address] [place] [address] Patient: VAN TAVERA Visit ID: [id number] 41y, M Weight: 99.7 kg Height/Length: 67 in BMI: 34.5 ALLERGIES: No Known Drug Allergy Given 03:00 03/04/2017 Blanca Solano, RMinoNMino Medication Administered: [id number]-[id number] PERTUSSIS [IM], Dose: 0.5 mL IM. Medication Ordered: Kpbusbr-Gckybq-Ipwnu Pertussis IM 0.5 mL (NOW, per protocol). Given 03:01 03/04/2017 Blanca Solano, R.N. Medication Administered: MOTRIN [PO], Dose: 600 mg Tablets PO. Medication Ordered: Motrin PO 600 mg (NOW).
--- NOTE | 2017-03-07 06:12 | ED MED RECONCILIATION SUMMARY ---
Patient: VAN TAVERA Medication Reconciliation Report [facility] VisitID: [id number] [address] [place] [address] 41y, M Registration Date/Time: 03/04/2017 Weight: 99.7 kg Height/Length: 67 in. BMI: 34.5 ALLERGIES: No Known Drug Allergy The patient's Home Medications are listed below: CONTINUE TAKING THE FOLLOWING MEDICATIONS: Benadryl Oral 50 mg, 2x a day Ibuprofen Oral The source(s) of the original Home Medication information: Not obtained. The following Medications were given to the patient in the Emergency Department: [id number]-[id number]-AWABY PERTUSSIS [IM] IM 0.5 mL, administered: 03/04/2017 3:00:00 AM Motrin [PO] PO 600 mg, administered: 03/04/2017 3:01:00 AM The following Medications were prescribed to the patient: Acetaminophen (available over the counter): take according to label instructions. -- Philip Handy Dr. Motrin (available over the counter): take according to label instructions. -- Philip Handy Dr.
--- NOTE | 2017-03-07 06:12 | ED MAR SUMMARY ---
..... Medication Administration Record [facility] [address] [place] [address] Patient: VAN TAVERA Visit ID: [id number] 41y, M Weight: 99.7 kg Height/Length: 67 in BMI: 34.5 ALLERGIES: No Known Drug Allergy Given 03:00 03/04/2017 Blanca Solano, RMinoNMino Medication Administered: [id number]-XEANXZ-GCWEQ PERTUSSIS [IM], Dose: 0.5 mL IM. Medication Ordered: Yofbuhp-Wzjekr-Rhrnk Pertussis IM 0.5 mL (NOW, per protocol). Given 03:01 03/04/2017 Blanca Solano, R.N. Medication Administered: MOTRIN [PO], Dose: 600 mg Tablets PO. Medication Ordered: Motrin PO 600 mg (NOW).
== END 2017-03-04 04:05 | disposition home or self-care (01) ==
LOC: ED SRH 02:30
DX: S90.811A Abrasion, right foot, initial encounter (principal); S90.812A Abrasion, left foot, initial encounter; Z59.0 Homelessness; X50.3XXA Overexertion from repetitive movements, initial encounter; Y93.01 Activity, walking, marching and hiking; Y92.410 Unspecified street and highway as the place of occurrence of the external cause; Z23 Encounter for immunization

== ENCOUNTER 2017-03-05 01:34 | Emergency (ER) | payer OTHER ==
--- NOTE | 2017-03-05 04:52 | ED CLINICAL REPORT ---
Clinical Report - Physicians/Mid Levels [facility] [address] [place] [address] 03/05/2017 1:34 Patient: VAN SHIELDS Time Seen: 04:19. Arrived- By private vehicle. Historian- patient. HISTORY OF PRESENT ILLNESS Chief Complaint: Injury to the right and left foot. The injury happened yesterday. Occurred on a street. ( Mr. Shields was seen 24 hours ago for mental health concerns. When he arrived tonight, his first complaint was "I need a place to sleep." Then he amended it to "My feet hurt from walking."). Patient is experiencing mild pain. Patient also notes injury to the left lower extremity (ankle). (He also states that he twisted his ankle.). REVIEW OF SYSTEMS The patient complains of pain on weight bearing. No swelling, tingling, weakness, numbness or suspected foreign body. No skin laceration. PAST HISTORY PROBLEMS: Drug Poisoning. Dystonic Drug Reaction. Psychosis. Anxiety Reaction. Mental Illness. Polyps. Abrasion(s). --01:52 Blanca Solano R.N. ADDITIONAL SURGERIES: Dental Surgery. Oral surgery . --01:52 Blanca Solano R.N. Tetanus immunization status is up-to-date. SOCIAL HISTORY The patient is homeless. ADDITIONAL NOTES The nursing notes have been reviewed. PHYSICAL EXAM Vital Signs: 03/05/2017 01:46 BP: 133/83. HR: 79. RR: 17. O2 saturation: 99%. Temp: 98.9 F. Jerome-Dai pain scale: 4/10. Appearance: Alert. No acute distress. Respiratory: No respiratory distress. Abdomen: No visible injury. Extremities: Left ankle. Neurovascular intact distally. No ligamentous laxity present. No joint effusion. No tenderness, swelling, abrasion, ecchymosis or deformity. No limitation in ROM. Left foot, plantar aspect: tenderness and swelling. Neurovascular intact distally. (some blisters and abrasions. No cellulitis or deformity). No erythema or deformity. Gait: Normal gait. No limping gait. PROGRESS AND PROCEDURES Course of Care: Because of the CC of I want a place to stay, Mr. Shields was given a room without a bed and with one chair. The following was documented by the RN Patient ready for evaluation- chart flagged. --01:53 Blanca Solano R.N. ( upon arrival to ED, pt states "I am not suicidal, I just said that so I can be placed on a 72hr hold so I will have a place to sleep. I won't bother you at all. I brought my own blanket, I just want to sleep." Pt further reports that Prov kicked him out and only gave him a sandwich, a soda and some ibuprofen.). --01:58 Blanca Solano R.N. ( pt now sleeping on floor in ED, resting head on his shoes.). --02:35 Blanca Solano R.N. Mr. Shields has some foot tenderness, swelling and abrasions without cellulitus. These are washed, antibiotic ointment and a dressing is placed. He is given two bus passes. Disposition: Discharged. Condition: stable. CLINICAL IMPRESSION Abrasion. (Blisters). Sprain of the talofibular ligament of the left ankle. INSTRUCTIONS Elevate affected areas above chest level. Do not work (TO THE MEN'S MISSION: PT HAS SWOLLEN AND BLISTERED FEET. HE SHOULD KEEP HIS FEET UP FOR THE NEXT 3-4 DAYS). Understanding of the discharge instructions verbalized by patient. Follow-up with: [facility], [place], , , [address], [facility], [id number] (Electronically signed by Aman Virgen MD 03/07/2017 14:17)
--- NOTE | 2017-03-05 04:52 | ED NURSING NOTES ---
Clinical Report - Nurses [facility] [address] [place] [address] 03/05/2017 1:34 Patient: VAN TAVERA TRIAGE Triage time 01:47. Chief Complaint: (pt reports that he is not suicidal. pt reports he only said that to have a place to sleep for 72hr hold.). --01:50 Blanca Solano R.N. 01:46 03/05/17. BP: 133/83. HR: 79. RR: 17 (regular and unlabored). O2 saturation: 99% on room air. Temp: 98.9 F (oral). Jerome-Dai pain scale: 4/10. --01:50 Blanca Solano R.N. Weight: 79.3 kg estimated. Height/Length: 67 inches Per Patient. BMI: 27.4. --01:50 Blanca Solano R.N. Medications Benadryl Oral 50 mg, 2x a day. Ibuprofen Oral. --01:52 Blanca Solano R.N. Allergies No Known Drug Allergy. --01:52 Blanca Solano R.N. History Arrived by private vehicle. Historian: patient. Primary physician (None). --01:50 Blanca Solano R.N. PAST MEDICAL HX: Immunizations: up-to-date. --01:52 Blanca Solano R.N. PROBLEMS: Drug Poisoning. Dystonic Drug Reaction. Psychosis. Anxiety Reaction. Mental Illness. Polyps. Abrasion(s). --01:52 Blanca Solano R.N. ADDITIONAL SURGERIES: Dental Surgery. Oral surgery . --01:52 Blanca Solano R.N. PHYSICAL ASSESSMENT Ambulatory to room. GENERAL / NEURO / PSYCH: Alert. Oriented X 4. Appears in no acute distress. Speech within normal limits. Affect appears normal. Patient appears calm and cooperative. RESPIRATORY: Respirations not labored. CVS: Capillary refill less than 2 seconds. SKIN: Skin is warm and dry. --01:53 Blanca Solano R.N. NURSING PROGRESS NOTES Two patient identifiers checked. Call light placed in reach. Patient placed in chair. --:53 Blanca Solano R.N. Patient ready for evaluation- chart flagged. --01:53 Blanca Solano R.N. ( upon arrival to ED, pt states "I am not suicidal, I just said that so I can be placed on a 72hr hold so I will have a place to sleep. I won't bother you at all. I brought my own blanket, I just want to sleep." Pt further reports that Prov kicked him out and only gave him a sandwich, a soda and some ibuprofen.). --01:58 Blanca Solano R.N. ( pt now sleeping on floor in ED, resting head on his shoes.). --02:35 Blanca Solano R.N. 04:32 03/05/2017 Tylenol (Acetaminophen) PO Tablets 650 mg given. Allergies verified and confirmed 5 rights. --04:32 Blanca Solano R.N. ( pt in discussion with ED, states "the nurse put words into my mouth so now you wont let me stay here and sleep in a bed like a normal person". Went in the room for clarification. Pt changing story, stating he came in to have his feet looked at and now we are refusing him care. EDMD explained to pt that his feet do look sore but that he has already been seen and released for his feet and that he needs to follow up with [facility] and to get into the homeless alf so he can put his feet up and let them heal. Pt continues to be belligerent, yelling and giving excuses as to why he can't follow up. Melissa Manzo, RN bandages pts feet at this time. Discharge instructions written by EDNJ.). --04:37 Blanca Solano R.N. 04:38. Applied clean dressing, following the application of antibiotic ointment (bacitracin). Secured with ravin (applied to both feet). --04:42 Jovany Prasad R.N. 04:40. The patient is calm and resting quietly. GENERAL / NEURO / PSYCH: Alert. Oriented X 4. Patient appears calm and cooperative. Affect appears normal. RESPIRATORY: No respiratory distress. SKIN: Skin is warm and dry. --04:54 Jovany Prasad R.N. DISPOSITION / DISCHARGE Departure time: 04:43. Condition at departure: stable. No learning barriers present. Discharge instructions provided and reviewed with the patient. Patient verbalized understanding. Written instructions provided in Russian. The patient was discharged home and unaccompanied at time of discharge. He left the Emergency Department ambulatory and via bus and with fare provided. FALL RISK ASSESSMENT: Fall risk assessment completed. No fall risk identified. --04:43 Jovany Prasad R.N. 04:40 03/05/17. BP: 135/90. HR: 83. RR: 16. O2 saturation: 99%. Pain level now: 11/15. --04:43 Jovany Prasad R.N. Locked/Released at 03/05/2017 4:56 by Jovany Prasad R.N.
--- NOTE | 2017-03-05 04:52 | ED ORDER SUMMARY ---
..... Patient: VAN TAVERA OrderSheet [facility] VisitID: [id number] [place] [address] 41y, M Registration Date/Time: 03/05/2017 ORDER SHEET Weight: 79.3 kg (estimated) Allergies: No Known Drug Allergy GENERAL ORDERS: MEDICATION ORDERS: Tylenol PO 650 mg (NOW) (04:30 03/05/2017 Alan REYES) (4:32 Arabella Leal.NMino) IV FLUIDS: ORDER SHEET NOTES: [Electronically signed by Jovany Prasad R.N. (04:56 03/05/2017)] [Electronically signed by Aman Virgen MD (14:17 03/07/2017)] [Electronically locked/signed by Jovany Prasad R.N. (04:56 03/05/2017)]
--- NOTE | 2017-03-05 04:52 | ED NURSING NOTES ---
Clinical Report - Nurses [facility] [address] [place] [address] 03/05/2017 1:34 Patient: VAN TAVERA TRIAGE Triage time 01:47. Chief Complaint: (pt reports that he is not suicidal. pt reports he only said that to have a place to sleep for 72hr hold.). --01:50 Blanca Solano R.N. 01:46 03/05/17. BP: 133/83. HR: 79. RR: 17 (regular and unlabored). O2 saturation: 99% on room air. Temp: 98.9 F (oral). Jerome-Dai pain scale: 4/10. --01:50 Blanca Solano R.N. Weight: 79.3 kg estimated. Height/Length: 67 inches Per Patient. BMI: 27.4. --01:50 Blanca Solano R.N. Medications Benadryl Oral 50 mg, 2x a day. Ibuprofen Oral. --01:52 Blanca Solano R.N. Allergies No Known Drug Allergy. --01:52 Blanca Solano R.N. History Arrived by private vehicle. Historian: patient. Primary physician (None). --01:50 Blanca Solano R.N. PAST MEDICAL HX: Immunizations: up-to-date. --01:52 Blanca Solano R.N. PROBLEMS: Drug Poisoning. Dystonic Drug Reaction. Psychosis. Anxiety Reaction. Mental Illness. Polyps. Abrasion(s). --01:52 Blanca Solano R.N. ADDITIONAL SURGERIES: Dental Surgery. Oral surgery . --01:52 Blanca Solano R.N. PHYSICAL ASSESSMENT Ambulatory to room. GENERAL / NEURO / PSYCH: Alert. Oriented X 4. Appears in no acute distress. Speech within normal limits. Affect appears normal. Patient appears calm and cooperative. RESPIRATORY: Respirations not labored. CVS: Capillary refill less than 2 seconds. SKIN: Skin is warm and dry. --01:53 Blanca Solano R.N. NURSING PROGRESS NOTES Two patient identifiers checked. Call light placed in reach. Patient placed in chair. --:53 Blanca Solano R.N. Patient ready for evaluation- chart flagged. --01:53 Blanca Solano R.N. ( upon arrival to ED, pt states "I am not suicidal, I just said that so I can be placed on a 72hr hold so I will have a place to sleep. I won't bother you at all. I brought my own blanket, I just want to sleep." Pt further reports that Prov kicked him out and only gave him a sandwich, a soda and some ibuprofen.). --01:58 Blanca Solano R.N. ( pt now sleeping on floor in ED, resting head on his shoes.). --02:35 Blanca Solano R.N. 04:32 03/05/2017 Tylenol (Acetaminophen) PO Tablets 650 mg given. Allergies verified and confirmed 5 rights. --04:32 Blanca Solano R.N. ( pt in discussion with ED, states "the nurse put words into my mouth so now you wont let me stay here and sleep in a bed like a normal person". Went in the room for clarification. Pt changing story, stating he came in to have his feet looked at and now we are refusing him care. EDMD explained to pt that his feet do look sore but that he has already been seen and released for his feet and that he needs to follow up with [facility] and to get into the homeless detention so he can put his feet up and let them heal. Pt continues to be belligerent, yelling and giving excuses as to why he can't follow up. Melissa Manzo, RN bandages pts feet at this time. Discharge instructions written by EDSC.). --04:37 Blanca Solano R.N. 04:38. Applied clean dressing, following the application of antibiotic ointment (bacitracin). Secured with ravin (applied to both feet). --04:42 Jovany Prasad R.N. 04:40. The patient is calm and resting quietly. GENERAL / NEURO / PSYCH: Alert. Oriented X 4. Patient appears calm and cooperative. Affect appears normal. RESPIRATORY: No respiratory distress. SKIN: Skin is warm and dry. --04:54 Jovany Prasad R.N. DISPOSITION / DISCHARGE Departure time: 04:43. Condition at departure: stable. No learning barriers present. Discharge instructions provided and reviewed with the patient. Patient verbalized understanding. Written instructions provided in [place]. The patient was discharged home and unaccompanied at time of discharge. He left the Emergency Department ambulatory and via bus and with fare provided. FALL RISK ASSESSMENT: Fall risk assessment completed. No fall risk identified. --04:43 Jovany Prasad R.N. 04:40 03/05/17. BP: 135/90. HR: 83. RR: 16. O2 saturation: 99%. Pain level now: 11/15. --04:43 Jovany Prasad R.N. Locked/Released at 03/05/2017 4:56 by Jovany Prasad R.N.
--- NOTE | 2017-03-05 04:52 | ED ORDER SUMMARY ---
..... Patient: VAN TAVERA OrderSheet [facility] VisitID: [id number] [place] [address] 41y, M Registration Date/Time: 03/05/2017 ORDER SHEET Weight: 79.3 kg (estimated) Allergies: No Known Drug Allergy GENERAL ORDERS: MEDICATION ORDERS: Tylenol PO 650 mg (NOW) (04:30 03/05/2017 Alan REYES) (4:32 Arabella Leal.NMino) IV FLUIDS: ORDER SHEET NOTES: [Electronically signed by Jovany Prasad R.N. (04:56 03/05/2017)] [Electronically signed by Aman Virgen MD (14:17 03/07/2017)] [Electronically locked/signed by Jovany Prasad R.N. (04:56 03/05/2017)]
--- NOTE | 2017-03-05 04:52 | ED CLINICAL REPORT ---
Clinical Report - Physicians/Mid Levels [facility] [address] [place] [address] 03/05/2017 1:34 Patient: VAN SHIELDS Time Seen: 04:19. Arrived- By private vehicle. Historian- patient. HISTORY OF PRESENT ILLNESS Chief Complaint: Injury to the right and left foot. The injury happened yesterday. Occurred on a street. ( Mr. Shields was seen 24 hours ago for mental health concerns. When he arrived tonight, his first complaint was "I need a place to sleep." Then he amended it to "My feet hurt from walking."). Patient is experiencing mild pain. Patient also notes injury to the left lower extremity (ankle). (He also states that he twisted his ankle.). REVIEW OF SYSTEMS The patient complains of pain on weight bearing. No swelling, tingling, weakness, numbness or suspected foreign body. No skin laceration. PAST HISTORY PROBLEMS: Drug Poisoning. Dystonic Drug Reaction. Psychosis. Anxiety Reaction. Mental Illness. Polyps. Abrasion(s). --01:52 Blanca Solano R.N. ADDITIONAL SURGERIES: Dental Surgery. Oral surgery . --01:52 Blanca Solano R.N. Tetanus immunization status is up-to-date. SOCIAL HISTORY The patient is homeless. ADDITIONAL NOTES The nursing notes have been reviewed. PHYSICAL EXAM Vital Signs: 03/05/2017 01:46 BP: 133/83. HR: 79. RR: 17. O2 saturation: 99%. Temp: 98.9 F. Jerome-Dai pain scale: 4/10. Appearance: Alert. No acute distress. Respiratory: No respiratory distress. Abdomen: No visible injury. Extremities: Left ankle. Neurovascular intact distally. No ligamentous laxity present. No joint effusion. No tenderness, swelling, abrasion, ecchymosis or deformity. No limitation in ROM. Left foot, plantar aspect: tenderness and swelling. Neurovascular intact distally. (some blisters and abrasions. No cellulitis or deformity). No erythema or deformity. Gait: Normal gait. No limping gait. PROGRESS AND PROCEDURES Course of Care: Because of the CC of I want a place to stay, Mr. Shields was given a room without a bed and with one chair. The following was documented by the RN Patient ready for evaluation- chart flagged. --01:53 Blanca Solano R.N. ( upon arrival to ED, pt states "I am not suicidal, I just said that so I can be placed on a 72hr hold so I will have a place to sleep. I won't bother you at all. I brought my own blanket, I just want to sleep." Pt further reports that Prov kicked him out and only gave him a sandwich, a soda and some ibuprofen.). --01:58 Balnca Solano R.N. ( pt now sleeping on floor in ED, resting head on his shoes.). --02:35 Blanca Solano R.N. Mr. Shields has some foot tenderness, swelling and abrasions without cellulitus. These are washed, antibiotic ointment and a dressing is placed. He is given two bus passes. Disposition: Discharged. Condition: stable. CLINICAL IMPRESSION Abrasion. (Blisters). Sprain of the talofibular ligament of the left ankle. INSTRUCTIONS Elevate affected areas above chest level. Do not work (TO THE MEN'S MISSION: PT HAS SWOLLEN AND BLISTERED FEET. HE SHOULD KEEP HIS FEET UP FOR THE NEXT 3-4 DAYS). Understanding of the discharge instructions verbalized by patient. Follow-up with: [facility], , , [address], [facility], [id number] (Electronically signed by Aman Virgen MD 03/07/2017 14:17)
--- NOTE | 2017-03-07 14:18 | ED DISCHARGE INSTRUCTIONS ---
Patient: VAN TAVERA General Instructions [facility] VisitID: [id number] [address], [place] [address] 41y, M Registration Date/Time: 03/05/2017 Abrasion. (Blisters). Sprain of the talofibular ligament of the left ankle. INSTRUCTIONS Elevate affected areas above chest level. Do not work (TO THE MEN'S MISSION: PT HAS SWOLLEN AND BLISTERED FEET. HE SHOULD KEEP HIS FEET UP FOR THE NEXT 3-4 DAYS). Understanding of the discharge instructions verbalized by patient. Follow-up with: [facility], , , [address], [place], [id number] ADDITIONAL INFORMATION Sprain, Ankle ([facility] Rules: No X-Ray) Based on your exam today, you have an ankle sprain. This is a tearing of the ligaments that hold the ankle joint together. [facility] Ankle Rules are guidelines that help doctors and triage nurses avoid unnecessary X-rays. In your case, these rules tell us that the chance of a fracture causing your symptoms is so small that an X-ray is not advised. Sprains take from 36 weeks to heal. Sprains may be treated with an elastic wrap or an in-shoe splint to provide support and prevent reinjury. Very mild sprains may not require any additional support. Home care The following guidelines will help you care for your sprain at home: Stay off the injured leg as much as possible until you can walk on it without pain. You may use crutches during the first week for this purpose. (Crutches can be rented at many pharmacies or surgical/orthopedic supply stores.) Keep your leg elevated when sitting or lying down. This is very important during the first 48 hours. Make an ice pack (ice cubes in a plastic bag, wrapped in a towel) and apply over the injured area for 20 minutes every 1-2 hours the first day. You should continue with ice packs 3-4 times a day for the next two days. Continue the use of ice packs for relief of pain and swelling as needed. You may use acetaminophen or ibuprofen to control pain, unless another pain medicine was prescribed. If you have chronic liver or kidney disease or ever had a stomach ulcer or GI bleeding, talk with your doctor before using these medicines. Follow-up care Follow up with your doctor as advised. Check for any warning signs listed below. If you had X-rays today, they didnt show any broken bones, breaks, or fractures. Sometimes fractures dont show up on the first X-ray. Bruises and sprains can sometimes hurt as much as a fracture. These injuries can take time to heal completely. If your symptoms dont improve or they get worse, talk with your doctor. You may need a repeat X-ray. When to seek medical care Get prompt medical attention if any of the following occur: Pain or swelling increases Toes become cold, blue, numb or tingly You have been given the following additional information: Sprain, Ankle, No X-Ray Do not work (TO THE [employer] MISSION: PT HAS SWOLLEN AND BLISTERED FEET. HE SHOULD KEEP HIS FEET UP FOR THE NEXT 3-4 DAYS). (Electronically signed by Aman Virgen MD 03/07/2017 14:17)
--- NOTE | 2017-03-07 14:18 | ED DISCHARGE INSTRUCTIONS ---
Patient: VAN TAVERA General Instructions [facility] VisitID: [id number] [address], [place] [address] 41y, M Registration Date/Time: 03/05/2017 Abrasion. (Blisters). Sprain of the talofibular ligament of the left ankle. INSTRUCTIONS Elevate affected areas above chest level. Do not work (TO THE MEN'S MISSION: PT HAS SWOLLEN AND BLISTERED FEET. HE SHOULD KEEP HIS FEET UP FOR THE NEXT 3-4 DAYS). Understanding of the discharge instructions verbalized by patient. Follow-up with: [facility], , , [address], [place], [id number] ADDITIONAL INFORMATION Sprain, Ankle ([facility] Rules: No X-Ray) Based on your exam today, you have an ankle sprain. This is a tearing of the ligaments that hold the ankle joint together. [facility] Ankle Rules are guidelines that help doctors and triage nurses avoid unnecessary X-rays. In your case, these rules tell us that the chance of a fracture causing your symptoms is so small that an X-ray is not advised. Sprains take from 36 weeks to heal. Sprains may be treated with an elastic wrap or an in-shoe splint to provide support and prevent reinjury. Very mild sprains may not require any additional support. Home care The following guidelines will help you care for your sprain at home: Stay off the injured leg as much as possible until you can walk on it without pain. You may use crutches during the first week for this purpose. (Crutches can be rented at many pharmacies or surgical/orthopedic supply stores.) Keep your leg elevated when sitting or lying down. This is very important during the first 48 hours. Make an ice pack (ice cubes in a plastic bag, wrapped in a towel) and apply over the injured area for 20 minutes every 1-2 hours the first day. You should continue with ice packs 3-4 times a day for the next two days. Continue the use of ice packs for relief of pain and swelling as needed. You may use acetaminophen or ibuprofen to control pain, unless another pain medicine was prescribed. If you have chronic liver or kidney disease or ever had a stomach ulcer or GI bleeding, talk with your doctor before using these medicines. Follow-up care Follow up with your doctor as advised. Check for any warning signs listed below. If you had X-rays today, they didnt show any broken bones, breaks, or fractures. Sometimes fractures dont show up on the first X-ray. Bruises and sprains can sometimes hurt as much as a fracture. These injuries can take time to heal completely. If your symptoms dont improve or they get worse, talk with your doctor. You may need a repeat X-ray. When to seek medical care Get prompt medical attention if any of the following occur: Pain or swelling increases Toes become cold, blue, numb or tingly You have been given the following additional information: Sprain, Ankle, No X-Ray Do not work (TO THE [employer] MISSION: PT HAS SWOLLEN AND BLISTERED FEET. HE SHOULD KEEP HIS FEET UP FOR THE NEXT 3-4 DAYS). (Electronically signed by Aman Virgen MD 03/07/2017 14:17)
--- NOTE | 2017-03-07 14:18 | ED MAR SUMMARY ---
..... Medication Administration Record [address] [place] [address] Patient: VAN TAVERA Visit ID: [id number] 41y, M Weight: 79.3 kg Height/Length: 67 in BMI: 27.4 ALLERGIES: No Known Drug Allergy Given 04:32 03/05/2017 Blanca Solano R.N. Medication Administered: TYLENOL [PO] (ACETAMINOPHEN), Dose: 650 mg Tablets PO. Medication Ordered: Tylenol PO 650 mg (NOW).
--- NOTE | 2017-03-07 14:18 | ED MED RECONCILIATION SUMMARY ---
Patient: VAN TAVERA Medication Reconciliation Report [facility] VisitID: [id number] [address] [place] [address] 41y, M Registration Date/Time: 03/05/2017 Weight: 79.3 kg Height/Length: 67 in. BMI: 27.4 ALLERGIES: No Known Drug Allergy The patient's Home Medications are listed below: THE FOLLOWING MEDICATIONS NEED TO BE RECONCILED: Benadryl Oral 50 mg, 2x a day Ibuprofen Oral The source(s) of the original Home Medication information: Not obtained. The following Medications were given to the patient in the Emergency Department: Tylenol [PO] PO 650 mg, administered: 03/05/2017 4:32:00 AM The following Medications were prescribed to the patient: None.
--- NOTE | 2017-03-07 14:18 | ED MED RECONCILIATION SUMMARY ---
Patient: VAN TAVERA Medication Reconciliation Report [facility] VisitID: [id number] [address] [place] [address] 41y, M Registration Date/Time: 03/05/2017 Weight: 79.3 kg Height/Length: 67 in. BMI: 27.4 ALLERGIES: No Known Drug Allergy The patient's Home Medications are listed below: THE FOLLOWING MEDICATIONS NEED TO BE RECONCILED: Benadryl Oral 50 mg, 2x a day Ibuprofen Oral The source(s) of the original Home Medication information: Not obtained. The following Medications were given to the patient in the Emergency Department: Tylenol [PO] PO 650 mg, administered: 03/05/2017 4:32:00 AM The following Medications were prescribed to the patient: None.
--- NOTE | 2017-03-07 14:18 | ED MAR SUMMARY ---
..... Medication Administration Record [address] [place] [address] Patient: VAN TAVERA Visit ID: [id number] 41y, M Weight: 79.3 kg Height/Length: 67 in BMI: 27.4 ALLERGIES: No Known Drug Allergy Given 04:32 03/05/2017 Blanca Solano R.N. Medication Administered: TYLENOL [PO] (ACETAMINOPHEN), Dose: 650 mg Tablets PO. Medication Ordered: Tylenol PO 650 mg (NOW).
== END 2017-03-05 04:43 | disposition home or self-care (01) ==
LOC: ED SRH 01:34
DX: S93.432A Sprain of tibiofibular ligament of left ankle, initial encounter (principal); S90.821D Blister (nonthermal), right foot, subsequent encounter; S90.822D Blister (nonthermal), left foot, subsequent encounter; X50.3XXD Overexertion from repetitive movements, subsequent encounter; Y93.01 Activity, walking, marching and hiking; Y92.410 Unspecified street and highway as the place of occurrence of the external cause; Z59.0 Homelessness